=== PATIENT | female | born 1995 | race Caucasian/White ===

== ENCOUNTER 2025-07-06 04:55 | Emergency (ER) | payer MEDICAID ==
[~2025-07-06] VITALS: Ht 162.6 cm; Wt 77.0 kg
[2025-07-06 04:57] VITALS: O2SAT 99
[2025-07-06 05:58] LABS: BASOPHILS % 0.2 % (0.0-2.0); EOSINOPHILS % 0.1 % (0.0-5.0); HEMATOCRIT. 34.2 % (36.0-48.0); HEMOGLOBIN. 11.2 g/dL (12.0-16.0); LYMPHOCYTES % 4.0 % (20.0-50.0); MEAN PLATELET VOLUME 9.1 fl (7.4-10.4); MONOCYTES % 7.5 % (2.0-8.0); NEUTROPHILS % 88.2 % (40.0-76.0); PLATELET 253 x1000/uL (130-400); RED BLOOD CELL COUNT 4.43 mill/uL (4.2-5.4); RED CELL DISTRIBUTION WIDTH 14.4 % (11.6-14.6)
[2025-07-06] MEDS: ACETAMINOPHEN 325MG TABLET PO ONE (06:12)
[2025-07-06 06:21] LABS: CREATININE 0.8 mg/dL (0.6-1.0)
[2025-07-06 06:22] LABS: PROTEIN TOTAL 7.2 g/dL (6.0-8.3); UREA NITROGEN BLOOD 5 mg/dL (9-23)
[2025-07-06 06:23] LABS: ASPARTATE AMINOTRANSFERASE 54 IU/L (<34); BILIRUBIN DIRECT 0.7 mg/dL (<=3.0); HCG SCREEN NEGATIVE
[2025-07-06 06:24] LABS: BILIRUBIN TOTAL 1.6 mg/dL (0.1-1.0)
[2025-07-06] MEDS: KETOROLAC 15MG/ML VIAL IV ONE (06:51)
[2025-07-06 07:01] LABS: CLARITY URINE CLOUDY (CLEAR); COLOR URINE YELLOW (YELLOW); GLUCOSE URINE NEGATIVE (NEGATIVE); KETONES URINE NEGATIVE (NEGATIVE); LEUKOCYTE ESTERASE URINE 2+ (NEGATIVE); NITRITE URINE POSITIVE (NEGATIVE); OCCULT BLOOD URINE TRACE (NEGATIVE); PH URINE 6.5 (4.5-8.0); PROTEIN URINE 1+ (NEGATIVE); SPECIFIC GRAVITY URINE 1.010 (1.005-1.030); UROBILINOGEN URINE 4.0 E.U./dL (0.2-1.0)
[2025-07-06 07:08] LABS: INR 1.1
[2025-07-06 07:14] LABS: BACTERIA URINE 2+; RBC URINE 0-2 /hpf (0-2); SQUAMOUS EPITHELIAL CELL URINE 1+ /lpf (RARE/1+)
[2025-07-06] MEDS: CEFTRIAXONE 1GM/50ML 50 ML IV ONE (07:37)
[2025-07-06] MEDS: LACTATED RINGERS IV SCH (07:38)
[2025-07-06] MEDS ORDERED: KETO10TA2 MT (08:17)
[2025-07-06] MEDS ORDERED: CEFP200T13 MT (08:17)
[2025-07-06 08:18] VITALS: BP 102/56; PULSE 89; RESP 19; TEMP 37.3; O2SAT 99
== END 2025-07-06 08:38 | disposition home or self-care (01) ==
LOC: ER 04:55
DX: N12 Tubulo-interstitial nephritis, not specified as acute or chronic (principal); R30.0 Dysuria; R50.9 Fever, unspecified; R06.02 Shortness of breath
CPT/HCPCS: 99285; 74176; 96365; 96375; 80076; 80048; 81003; 84703; 83605; 83690; 85025; 85610; 36415; 93005; J1885; J0696